=== PATIENT | female | born 1990 | race Caucasian/White ===

== ENCOUNTER 2019-08-13 21:38 | Emergency (ER) | payer MEDICAID ==
[~2019-08-13] VITALS: Ht 154.9 cm; Wt 99.3 kg
--- NOTE | 2019-08-13 21:39 | NUR ---
EKG DONE IN TRIAGE
[2019-08-13 21:42] VITALS: BP_SYST 111
--- NOTE | 2019-08-13 21:48 | NUR ---
Patient triaged and placed in waiting room. VSS and patient appears in no acute distress at this time. Accompanied by family, awaiting available bed, and MD notified of need for MSE.
[2019-08-13 22:08] LABS: BASOPHILS % (AUTO) 0.5 % (0.0-2.0); EOSINOPHILS # (AUTO) 0.1 K/uL (0.0-0.4); EOSINOPHILS % (AUTO) 1.9 % (0.0-4.0); HEMOGLOBIN 14.2 g/dL (12.0-16.0); LYMPHOCYTES # (AUTO) 2.8 K/uL (1.0-5.5); LYMPHOCYTES % (AUTO) 36.5 % (20.5-51.5); MEAN CORPUSCULAR HEMOGLOBIN 31 pg (27-31); MEAN CORPUSCULAR HGB CONC 35 % (32-36); MEAN CORPUSCULAR VOLUME 88 fL (79.0-98.0); MONOCYTES # (AUTO) 0.6 K/uL (0.0-1.0); MONOCYTES % (AUTO) 7.4 % (1.7-9.3); NEUTROPHILS # (AUTO) 4.1 K/uL (1.8-7.7); NEUTROPHILS % (AUTO) 53.7 % (40.0-70.0); PLATELET COUNT (AUTO) 243 K/uL (130-430); RED BLOOD CELL COUNT(AUTO) 4.65 MIL/uL (4.2-6.2); RED CELL DISTRIBUTION WIDTH 13.6 % (9.0-15.0); WHITE BLOOD COUNT (AUTO) 7.7 K/uL (4.8-10.8)
--- NOTE | 2019-08-13 22:10 | NUR ---
Placed in room 01 . Placed on pharmacy technician program director, blood pressure machine and pulse oximeter. To gown for exam. Side rails up. Report given to
[2019-08-13 22:20] LABS: CALCIUM 8.9 mg/dL (8.4-11.0); CREATININE 0.82 mg/dL (0.55-1.30); POTASSIUM 3.3 mmol/L (3.5-5.1)
--- NOTE | 2019-08-13 22:21 | NUR ---
pt brought self to ED. Pt awake, alert, oriented x4. Pt states that she has been having substernal pain 05/24 since 2pm today. [place] go to bed when she had a sharp increase in pain when laying down, new onset abdominal pain, and L arm numbness. Pt also states she has a sore throat, but denies being ill. Pt denies shortness of breath, nausea, vomiting, diarrhea, syncope, headache, dizziness, blurred vision, jaw or neck pain at this time. Pt denies any additional medical complaint at this time. Pt vss, resting in ed bed comfortably with her 2 children bedside.
[2019-08-13 22:27] LABS: ALBUMIN 3.5 g/dL (3.4-4.8); TOTAL BILIRUBIN 0.3 mg/dL (0.0-1.0)
--- NOTE | 2019-08-13 22:34 | NUR ---
ER Dr. Winkler at bedside examining patient.
[2019-08-13] MEDS ORDERED: NACL 0.9% 1,000 ML IV ONE (22:40)
[2019-08-13] MEDS ORDERED: KETOROLAC TROMETHAMINE 30 MG VIAL IVP ONE (22:45)
[2019-08-13] MEDS ORDERED: PANTOPRAZOLE SODIUM 40 MG/VIAL (PROTONIX) IVP ONE (22:45)
--- NOTE | 2019-08-14 00:15 | NUR ---
Pt resting in ED bed comfortably with children bedside. No acute distress at this time.
[2019-08-14 01:45] VITALS: BP_SYST 128
--- NOTE | 2019-08-14 01:45 | NUR ---
Patient given written and verbal discharge instructions and verbalizes understanding. ER MD discussed with patient the results and treatment provided. Patient in stable condition. ID arm band removed. IV catheter removed intact and dressing applied, no active bleeding. Rx of Ibuprofen and Protonix given. Patient educated on pain management and to follow up with PMD. Pain Scale 0/10. Opportunity for questions provided and answered. Medication side effect fact sheet provided.
== END 2019-08-14 01:45 | disposition home or self-care (01) ==
LOC: SED 21:38
DX: R07.2 Precordial pain (principal); E87.6 Hypokalemia; Z88.1 Allergy status to other antibiotic agents
CPT/HCPCS: 36415; 71045; 80053; 82550; 83690; 84484; 85025; 93005; 96374; 96375; 99284; C9113; J1885; J7030

== ENCOUNTER 2019-08-25 12:12 | Emergency (ER) | payer MEDICAID ==
--- NOTE | 2019-08-25 12:15 | NUR ---
Called pt x 1 , no answer
--- NOTE | 2019-08-25 12:22 | NUR ---
Called pt x 2 , no answer
== END 2019-08-25 12:40 | disposition left against medical advice (07) ==
LOC: SED 12:12
DX: N39.8 Other specified disorders of urinary system (principal); Z53.21 Procedure and treatment not carried out due to patient leaving prior to being seen by health care provider